=== PATIENT | female | born 1945 | race African-American/Black ===

== ENCOUNTER 2016-12-12 13:12 | Emergency (ER) | payer MEDICARE, OTHER ==
[~2016-12-12] VITALS: Ht 167.6 cm; Wt 59.0 kg
[2016-12-12] MEDS ORDERED: SODIUM CHLORIDE 0.9% 1,000 ML IV ONE (14:37)
[2016-12-12 15:13] LABS: BASOPHILS % 0.4 % (0.0-2.0); EOSINOPHILS % 0.5 % (0.0-5.0); HEMATOCRIT. 39.3 % (36.0-48.0); HEMOGLOBIN. 13.5 g/dL (12.0-16.0); LYMPHOCYTES % 11.8 % (20.0-50.0); MEAN CORPUSCULAR HEMOGLOBIN 30.6 pg (28.0-32.0); MEAN PLATELET VOLUME 8.6 fl (7.4-10.4); NEUTROPHILS % 77.3 % (40.0-76.0); PLATELET 229 x1000/uL (130-400); RED BLOOD CELL COUNT 4.41 mill/uL (4.2-5.4); RED CELL DISTRIBUTION WIDTH 13.4 % (11.6-14.6)
[2016-12-12 15:19] LABS: INR 1.1
[2016-12-12 15:28] LABS: CARBON DIOXIDE 23 mEq/L (21-32); CHLORIDE 111 mEq/L (98-107); ETHANOL BLOOD < 10 mg/dL; TROPONIN I < 0.02 ng/mL (0.00-0.04)
[2016-12-12 16:00] LABS: CLARITY URINE CLOUDY (CLEAR); COLOR URINE YELLOW (YELLOW); GLUCOSE URINE NEGATIVE (NEGATIVE); KETONES URINE 2+ (NEGATIVE); LEUKOCYTE ESTERASE URINE NEGATIVE (NEGATIVE); NITRITE URINE NEGATIVE (NEGATIVE); OCCULT BLOOD URINE NEGATIVE (NEGATIVE); PH URINE 6.5 (4.5-8.0); PROTEIN URINE NEGATIVE (NEGATIVE); SPECIFIC GRAVITY URINE 1.026 (1.005-1.030)
[2016-12-12 16:22] LABS: *AMPHETAMINES SCREEN URINE NEGATIVE (NEGATIVE); *BARBITURATES SCREEN URINE NEGATIVE (NEGATIVE); *BENZODIAZEPINES SCREEN URINE NEGATIVE (NEGATIVE); *COCAINE SCREEN URINE NEGATIVE (NEGATIVE); CANNABINOID URINE SCREEN NEGATIVE (NEGATIVE); METHADONE URINE SCREEN NEGATIVE (NEGATIVE); OPIATES URINE SCREEN NEGATIVE (NEGATIVE); PHENCYCLIDINE URINE SCREEN NEGATIVE (NEGATIVE)
[2016-12-12] MEDS ORDERED: CEPHALEXIN 500MG CAPSULE PO ONE (17:45)
[2016-12-12 19:05] VITALS: BP 144/91
== END 2016-12-12 19:36 | disposition home or self-care (01) ==
LOC: ER 15:57
DX: F34.89 Other specified persistent mood disorders (principal); Z63.4 Disappearance and death of family member; R03.0 Elevated blood-pressure reading, without diagnosis of hypertension; N39.0 Urinary tract infection, site not specified; R00.0 Tachycardia, unspecified; E11.9 Type 2 diabetes mellitus without complications; E78.00 Pure hypercholesterolemia, unspecified
CPT/HCPCS: 36415; 71010; 80053; 80305; 81001; 83880; 84484; 85025; 85610; 93005; 96360; 96361; 99285; G0482; J7030

== ENCOUNTER 2016-12-15 11:26 | Inpatient (IN) | payer MEDICARE, OTHER ==
[~2016-12-15] VITALS: Ht 165.1 cm; Wt 763.8 kg
[2016-12-15 12:48] LABS: BASOPHILS % 0.5 % (0.0-2.0); EOSINOPHILS % 0.6 % (0.0-5.0); HEMATOCRIT. 33.7 % (36.0-48.0); HEMOGLOBIN. 11.8 g/dL (12.0-16.0); MEAN CORPUSCULAR HEMOGLOBIN 30.7 pg (28.0-32.0); MEAN CORPUSCULAR VOLUME 87.7 fL (81.0-99.0); MEAN PLATELET VOLUME 8.4 fl (7.4-10.4); MONOCYTES % 9.7 % (2.0-8.0); NEUTROPHILS % 77.2 % (40.0-76.0); PLATELET 195 x1000/uL (130-400); RED BLOOD CELL COUNT 3.84 mill/uL (4.2-5.4); RED CELL DISTRIBUTION WIDTH 13.7 % (11.6-14.6)
[2016-12-15 13:02] LABS: CARBON DIOXIDE 24 mEq/L (21-32); CHLORIDE 110 mEq/L (98-107)
[2016-12-15] MEDS ORDERED: ONDANSETRON HCL 4MG/2ML VIAL IV PRN (13:15)
[2016-12-15] MEDS ORDERED: CLONIDINE 0.1MG TABLET PO PRN (13:15)
[2016-12-15] MEDS ORDERED: ACETAMINOPHEN 325MG TABLET PO PRN (13:15)
[2016-12-15 13:44] LABS: CLARITY URINE CLEAR (CLEAR); COLOR URINE YELLOW (YELLOW); GLUCOSE URINE NEGATIVE (NEGATIVE); KETONES URINE NEGATIVE (NEGATIVE); LEUKOCYTE ESTERASE URINE NEGATIVE (NEGATIVE); NITRITE URINE NEGATIVE (NEGATIVE); OCCULT BLOOD URINE NEGATIVE (NEGATIVE); PROTEIN URINE NEGATIVE (NEGATIVE); SPECIFIC GRAVITY URINE 1.015 (1.005-1.030)
[2016-12-15] MEDS ORDERED: HYDROMORPHONE HCL/PF 2MG/ML CPJ IV PRN (16:30)
[2016-12-15 20:00] VITALS: BP 151/91
[2016-12-15 21:00] VITALS: BP 151/91
[2016-12-15] MEDS: DEXT 5%/0.45% NACL 1000ML 1,000 ML IV SCH (22:15)
[2016-12-15] MEDS ORDERED: POTASSIUM CHLORIDE 20MEQ/PACKET PO NR (22:16)
[2016-12-15] MEDS: TEMAZEPAM 15MG CAPSULE PO PRN (22:31)
[2016-12-16] VITALS: BP 133/83
[2016-12-16 04:00] VITALS: BP 112/69
[2016-12-16 06:29] LABS: BASOPHILS % 0.5 % (0.0-2.0); EOSINOPHILS % 2.6 % (0.0-5.0); HEMATOCRIT. 34.2 % (36.0-48.0); HEMOGLOBIN. 11.9 g/dL (12.0-16.0); LYMPHOCYTES % 25.7 % (20.0-50.0); MEAN CORPUSCULAR HEMOGLOBIN 30.9 pg (28.0-32.0); MEAN CORPUSCULAR VOLUME 88.6 fL (81.0-99.0); MEAN PLATELET VOLUME 8.9 fl (7.4-10.4); MONOCYTES % 11.7 % (2.0-8.0); NEUTROPHILS % 59.5 % (40.0-76.0); PLATELET 197 x1000/uL (130-400); RED BLOOD CELL COUNT 3.86 mill/uL (4.2-5.4); RED CELL DISTRIBUTION WIDTH 13.4 % (11.6-14.6)
[2016-12-16 07:35] LABS: CHLORIDE 110 mEq/L (98-107)
[2016-12-16 08:00] VITALS: BP 128/66
[2016-12-16 08:01] LABS: CARBON DIOXIDE 25 mEq/L (21-32); HDL CHOLESTEROL 36 mg/dL (40-59); LDL CHOLESTEROL 49 mg/dL (5-100)
[2016-12-16] MEDS: RISPERIDONE 1MG TABLET PO SCH ×2 (09:04→21:46)
[2016-12-16] MEDS: ENOXAPARIN 40MG/0.4ML SYR SUBCUT SCH (09:04)
[2016-12-16] MEDS: DEXT 5%/0.45% NACL 1000ML 1,000 ML IV SCH (09:44)
[2016-12-16 11:48] VITALS: BP 114/71
[2016-12-16 16:00] VITALS: BP 126/78
[2016-12-16 19:55] VITALS: BP 136/85
[2016-12-16] MEDS: TEMAZEPAM 15MG CAPSULE PO PRN (21:46)
[2016-12-17] VITALS: BP 132/60
[2016-12-17] MEDS: DEXT 5%/0.45% NACL 1000ML 1,000 ML IV SCH ×2 (00:25→12:49)
[2016-12-17 04:00] VITALS: BP 136/80
[2016-12-17 07:55] LABS: CARBON DIOXIDE 26 mEq/L (21-32); CHLORIDE 110 mEq/L (98-107)
[2016-12-17 07:58] VITALS: BP 123/79
[2016-12-17 07:58] LABS: BASOPHILS % 0.5 % (0.0-2.0); EOSINOPHILS % 2.3 % (0.0-5.0); HEMATOCRIT. 37.3 % (36.0-48.0); HEMOGLOBIN. 12.9 g/dL (12.0-16.0); MEAN CORPUSCULAR HEMOGLOBIN 30.8 pg (28.0-32.0); MEAN PLATELET VOLUME 9.4 fl (7.4-10.4); MONOCYTES % 9.8 % (2.0-8.0); NEUTROPHILS % 62.4 % (40.0-76.0); PLATELET 204 x1000/uL (130-400); RED BLOOD CELL COUNT 4.19 mill/uL (4.2-5.4); RED CELL DISTRIBUTION WIDTH 13.7 % (11.6-14.6)
[2016-12-17] MEDS: ENOXAPARIN 40MG/0.4ML SYR SUBCUT SCH (08:54)
[2016-12-17] MEDS: RISPERIDONE 1MG TABLET PO SCH ×2 (08:55→21:28)
[2016-12-17 12:00] VITALS: BP 137/87
[2016-12-17 16:00] VITALS: BP 129/87
[2016-12-17 20:00] VITALS: BP 119/58
[2016-12-18] VITALS: BP 151/86
[2016-12-18 04:00] VITALS: BP 121/72
[2016-12-18] MEDS: DEXT 5%/0.45% NACL 1000ML 1,000 ML IV SCH ×2 (06:24→14:35)
[2016-12-18 07:23] LABS: BASOPHILS % 0.4 % (0.0-2.0); EOSINOPHILS % 1.9 % (0.0-5.0); HEMATOCRIT. 33.6 % (36.0-48.0); LYMPHOCYTES % 28.4 % (20.0-50.0); MEAN CORPUSCULAR HEMOGLOBIN 31.4 pg (28.0-32.0); MEAN CORPUSCULAR VOLUME 88.1 fL (81.0-99.0); MEAN PLATELET VOLUME 9.1 fl (7.4-10.4); MONOCYTES % 10.2 % (2.0-8.0); NEUTROPHILS % 59.1 % (40.0-76.0); PLATELET 199 x1000/uL (130-400); RED BLOOD CELL COUNT 3.81 mill/uL (4.2-5.4); RED CELL DISTRIBUTION WIDTH 13.5 % (11.6-14.6)
[2016-12-18 08:00] VITALS: BP 144/92
[2016-12-18 09:02] LABS: CARBON DIOXIDE 25 mEq/L (21-32); CHLORIDE 109 mEq/L (98-107)
[2016-12-18] MEDS: RISPERIDONE 1MG TABLET PO SCH (09:05)
[2016-12-18] MEDS: ENOXAPARIN 40MG/0.4ML SYR SUBCUT SCH (09:06)
[2016-12-18 12:00] VITALS: BP 164/92
[2016-12-18 16:00] VITALS: BP 128/77
[2016-12-18 16:37] VITALS: BP 154/88
== END 2016-12-18 17:41 | DRG 881 ==
LOC: ER 13:05 → 8WST 14:40 → ENRESERV 17:42
PROVIDERS: ADMIT Family Medicine Adult Medicine; ATTEND Family Medicine Adult Medicine
DX: F32.9 Major depressive disorder, single episode, unspecified (principal); D64.9 Anemia, unspecified; R62.7 Adult failure to thrive; E87.6 Hypokalemia; E78.00 Pure hypercholesterolemia, unspecified; E78.5 Hyperlipidemia, unspecified; Z79.899 Other long term (current) drug therapy
CPT/HCPCS: 36415; 70450; 71010; 80048; 80053; 80061; 80305; 81001; 81003; 83880; 84443; 84484; 85025; 85610; 87040; 87086; 93005; 93306; 93880; 93970; 96360; 96361; 97110; 97112; 97116; 97162; 97166; 97535; 99285; G0482; J1650; J7030

== ENCOUNTER 2019-11-12 11:48 | Emergency (ER) | payer MEDICARE, OTHER, SELFPAY ==
[~2019-11-12] VITALS: Ht 160 cm; Wt 51.0 kg
[2019-11-12] MEDS ORDERED: OLANZAPINE 10 MG/VIAL IM STA (12:09)
[2019-11-12] MEDS ORDERED: DIPHENHYDRAMINE 50MG/ML VIAL IM STA (12:09)
[2019-11-12 12:44] LABS: BASOPHILS % 0.5 % (0.0-2.0); EOSINOPHILS % 1.1 % (0.0-5.0); HEMATOCRIT. 35.9 % (36.0-48.0); HEMOGLOBIN. 12.2 g/dL (12.0-16.0); LYMPHOCYTES % 29.9 % (20.0-50.0); MEAN CORPUSCULAR HEMOGLOBIN 31.4 pg (28.0-32.0); MEAN CORPUSCULAR VOLUME 92.7 fL (81.0-99.0); MEAN PLATELET VOLUME 8.9 fl (7.4-10.4); MONOCYTES % 9.6 % (2.0-8.0); NEUTROPHILS % 58.9 % (40.0-76.0); PLATELET 226 x1000/uL (130-400); RED BLOOD CELL COUNT 3.88 mill/uL (4.2-5.4); RED CELL DISTRIBUTION WIDTH 14.7 % (11.6-14.6)
[2019-11-12 12:54] LABS: CHLORIDE 108 mEq/L (98-107)
[2019-11-12 12:58] LABS: ETHANOL BLOOD < 10 mg/dL
[2019-11-12] MEDS ORDERED: LORAZEPAM 2MG/ML CPJ IV ONE (13:15)
[2019-11-12 16:22] LABS: COLOR URINE YELLOW (YELLOW); KETONES URINE 2+ (NEGATIVE); LEUKOCYTE ESTERASE URINE NEGATIVE (NEGATIVE); NITRITE URINE NEGATIVE (NEGATIVE); OCCULT BLOOD URINE NEGATIVE (NEGATIVE); PH URINE 5.5 (4.5-8.0); PROTEIN URINE NEGATIVE (NEGATIVE); SPECIFIC GRAVITY URINE 1.017 (1.005-1.030)
[2019-11-12 16:25] LABS: CLARITY URINE CLEAR (CLEAR)
[2019-11-12 16:40] LABS: OPIATES URINE SCREEN NEGATIVE (NEGATIVE)
[2019-11-12 16:41] LABS: *AMPHETAMINES SCREEN URINE NEGATIVE (NEGATIVE); *BARBITURATES SCREEN URINE NEGATIVE (NEGATIVE); *BENZODIAZEPINES SCREEN URINE PRESUMTIVE POSITIVE (NEGATIVE); *COCAINE SCREEN URINE NEGATIVE (NEGATIVE); CANNABINOID URINE SCREEN NEGATIVE (NEGATIVE); PHENCYCLIDINE URINE SCREEN NEGATIVE (NEGATIVE)
[2019-11-12 16:42] LABS: METHADONE URINE SCREEN NEGATIVE (NEGATIVE)
[2019-11-12] MEDS ORDERED: OLANZAPINE 10 MG/VIAL IM ONE (23:15)
[2019-11-13] MEDS ORDERED: QUETIAPINE FUMARATE 25MG TABLET PO STA (07:13)
[2019-11-13] MEDS ORDERED: HALOPERIDOL LACTATE 5MG/ML VIAL IM ONE (15:45)
[2019-11-14] MEDS ORDERED: AMLODIPINE 5MG TABLET PO ONE ×2 (02:15→10:45)
[2019-11-14 22:00] VITALS: BP 154/79
[2019-11-14] MEDS ORDERED: AMLODIPINE 5MG TABLET PO NR (22:45)
== END 2019-11-15 01:30 ==
LOC: ER 11:48
DX: R26.9 Unspecified abnormalities of gait and mobility (principal); F03.90 Unspecified dementia, unspecified severity, without behavioral disturbance, psychotic disturbance, mood disturbance, and anxiety; R45.1 Restlessness and agitation; E78.00 Pure hypercholesterolemia, unspecified; I10 Essential (primary) hypertension; Z75.1 Person awaiting admission to adequate facility elsewhere; Z20.828 Contact with and (suspected) exposure to other viral communicable diseases
CPT/HCPCS: 36415; 70450; 80053; 80305; 80320; 81003; 82140; 82962; 85025; 96372; 96374; 99285; J1200; J1630; J2060; J3490; U0003; G0480